=== PATIENT | female | born 1995 | race American Indian/Alaskan Native ===

== ENCOUNTER 2019-02-24 00:03 | Emergency (ER) | payer OTHER ==
[~2019-02-24] VITALS: Ht 170.2 cm; Wt 63.5 kg
[2019-02-24 00:50] LABS: ABSOLUTE NEUTROPHILS 3.7 thou/uL (1.4-8.2); EOSINOPHILS 1.1 % (0.0-3.0); HEMATOCRIT 35.5 % (37.0-47.0); HEMOGLOBIN 11.8 gm/dL (12.0-15.0); LYMPHOCYTES 32.9 % (24.0-44.0); MCH 28.9 pg (26.0-34.0); MCHC 33.4 g/dL (28.0-37.0); MCV 86.7 fL (80.0-100.0); MONOCYTES 7.8 % (1.0-8.0); PLATELET COUNT 258 thou/uL (150-400); POLYS 57.2 % (36.0-66.0); RBC 4.09 mil/uL (4.20-5.00); RDW 13.5 % (10.5-14.5); WBC 6.4 thou/uL (4.0-11.0)
[2019-02-24 00:54] LABS: CALCIUM 8.7 mg/dL (8.5-10.1); CREATININE 0.7 mg/dL (0.6-1.0); POTASSIUM 3.6 mmol/L (3.5-5.1)
[2019-02-24 01:02] LABS: ALBUMIN 3.6 g/dL (3.4-5.0); TOTAL BILIRUBIN 0.3 mg/dL (<0.1-1.0); TOTAL PROTEIN 7.3 g/dL (6.4-8.2)
[2019-02-24] MEDS ORDERED: ZOFRAN ODT4 MG PO (02:34)
[2019-02-24] MEDS ORDERED: PROTONIX40 MG PO (02:37)
[2019-02-24 03:05] VITALS: BP 128/88
== END 2019-02-24 03:47 | disposition home or self-care (01) ==
LOC: ER 00:03
PROVIDERS: Emergency Medicine
DX: R10.9 Unspecified abdominal pain (principal); R11.10 Vomiting, unspecified; E11.43 Type 2 diabetes mellitus with diabetic autonomic (poly)neuropathy; K31.84 Gastroparesis; E11.40 Type 2 diabetes mellitus with diabetic neuropathy, unspecified; J45.909 Unspecified asthma, uncomplicated; G43.909 Migraine, unspecified, not intractable, without status migrainosus